=== PATIENT | male | born 1975 | race Caucasian/White ===

== ENCOUNTER 2023-05-04 11:08 | Inpatient (IN) | payer MEDICARE, MEDICAID ==
[~2023-05-04] VITALS: Ht 190.5 cm; Wt 74.6 kg
[2023-05-04 11:44] LABS: BASOPHILS % (AUTO) 0.5 % (0-1); EOSINOPHILS # (AUTO) 0.1 X10'3 (0-0.9); EOSINOPHILS % (AUTO) 1.5 % (0-6); HEMATOCRIT 43.2 % (42.0-52.0); HEMOGLOBIN 14.6 g/dl (14.0-17.9); LYMPHOCYTES # (AUTO) 1.3 X10'3 (1.1-4.8); LYMPHOCYTES % (AUTO) 18.8 % (21-51); MEAN CORPUSCULAR HEMOGLOBIN 30.7 PG (27.0-31.0); MEAN CORPUSCULAR HGB CONC 33.7 g/dL (33.0-36.5); MEAN CORPUSCULAR VOLUME 90.9 FL (78-98); MONOCYTES # (AUTO) 0.4 X10'3 (0-0.9); NEUTROPHILS % (AUTO) 73.2 % (42-75); PLATELET COUNT 341 X10'3 (140-440); RED BLOOD COUNT 4.75 X10'6 (4.70-6.10); RED CELL DISTRIBUTION WIDTH 13.4 % (11.5-14.5); WHITE BLOOD COUNT 6.9 X10'3 (4.5-11.0)
[2023-05-04 11:51] LABS: ALANINE AMINOTRANSFERASE 39 U/L (12-78); ALBUMIN/GLOBULIN RATIO 1.2 (1.1-1.5); ALKALINE PHOSPHATASE 116 IU/L (46-116); ANION GAP 5 (8-16); ASPARTATE AMINO TRANSFERASE 29 U/L (10-37); BILIRUBIN,TOTAL 0.4 MG/DL (0.1-1.0); BLOOD UREA NITROGEN 24 MG/DL (7-18); CALCIUM 8.6 MG/DL (8.5-10.1); CHLORIDE 106 MMOL/L (99-107); CREATININE 1.41 MG/DL (0.60-1.10); GLUCOSE 119 MG/DL (70-104); POTASSIUM 3.8 MMOL/L (3.5-5.1); SODIUM 139 MMOL/L (135-145); TOTAL CARBON DIOXIDE 27.9 MMOL/L (24-32); TOTAL PROTEIN 7.3 G/DL (6.4-8.2); eCRCL 70 ML/MIN; eGFR 54 ML/MIN
[2023-05-04 11:58] LABS: PRO BRAIN NATRIURETIC PEPTIDE 43 PG/ML (0-125)
--- NOTE | 2023-05-04 12:52 | NUR ---
FAMILY AT BEDSIDE. PT HAS NO COMPLAINTS. ON BEDSIDE MONITORING EQUIPMENT.
[2023-05-04] MEDS ORDERED: magnesium Cl slow-release 64mg tablet PO PRN (15:15)
[2023-05-04] MEDS ORDERED: magnesium 4gm in 100ml NS 100 ML IV PRN (15:15)
[2023-05-04] MEDS ORDERED: morphine 2 MG/ML inj. syringe IV PRN (15:15)
[2023-05-04] MEDS ORDERED: acetaminophen 325mg tablet PO PRN (15:15)
[2023-05-04] MEDS ORDERED: ondansetron/PF 4mg/2ml inj IV PRN (15:15)
[2023-05-04] MEDS ORDERED: mag hydrox/Alum hydrox/simeth 30ml oral suspension PO PRN (15:15)
[2023-05-04] MEDS ORDERED: potassium Cl 20 mEq SR tablet PO PRN (15:15)
[2023-05-04] MEDS ORDERED: potassium Cl 40MEQ/1/2NS 520ml 520 ML IV PRN (15:15)
[2023-05-04] MEDS ORDERED: magnesium hydroxide 30ml (MOM) UD suspension PO PRN (15:15)
[2023-05-04] MEDS ORDERED: magnesium 2GM in 50ml NS 50 ML IV PRN (15:15)
[2023-05-04] MEDS: normal saline 1000ml 1,000 ML IV SCH (16:45)
--- NOTE | 2023-05-04 17:21 | NUR ---
PARENTS HAVE LEFT FOR THE EVENING. PT HAS TV AT BEDSIDE. PT HAS MILD COGNITIVE DELAY THAT PARENTS STATE IS THE RESULT OF HIM BEING IN A COMA FOR 13 WEEKS FOLLOWING AN ABLATION FOR HIS FOFANA P[place] WHITE SYNDROME. THE ABLATION WAS DONE AT AGE 19. PT DENIES NEEDS AT THIS TIME.
[2023-05-04 17:22] LABS: URINE AMPHETAMINE SCREEN NEGATIVE (Neg); URINE BARBITUATE SCREEN NEGATIVE (Neg); URINE BENZODIAZEPINES SCREEN NEGATIVE (Neg); URINE CANNABINOID SCREEN NEGATIVE (Neg); URINE COCAINE SCREEN NEGATIVE (Neg); URINE METHADONE SCREEN NEGATIVE (Neg); URINE OPIATE SCREEN NEGATIVE (Neg); URINE PHENCYCLIDINE SCREEN NEGATIVE (Neg)
--- NOTE | 2023-05-04 17:43 | NUR ---
PATIENT RESTING QUIETLY WATCHING TV.
[2023-05-04] MEDS ORDERED: NO HOME MEDS (17:45)
--- NOTE | 2023-05-04 18:46 | NUR ---
Patient resting in bed, denies needs at this time. Call light within reach.
[2023-05-04] MEDS: K and/or MAG REPLACEMENT MC SCH (19:25)
[2023-05-04] MEDS: heparin, porcine 5000 units/ml vial SQ SCH (19:27)
[2023-05-04] MEDS: docusate sod 100mg capsule PO SCH (19:27)
--- NOTE | 2023-05-04 21:24 | NUR ---
Patient resting in bed watching TV. Respirations even and unlabored, no acute distress noted at this time, call light within reach.
--- NOTE | 2023-05-04 23:17 | NUR ---
Patient resting in bed, denies needs. Patient updated on status, verbalized understanding. Call light within reach.
[2023-05-05 02:59] LABS: BASOPHILS % (AUTO) 0.3 % (0-1); EOSINOPHILS # (AUTO) 0.1 X10'3 (0-0.9); EOSINOPHILS % (AUTO) 0.7 % (0-6); HEMATOCRIT 41.8 % (42.0-52.0); HEMOGLOBIN 14.4 g/dl (14.0-17.9); LYMPHOCYTES # (AUTO) 1.7 X10'3 (1.1-4.8); LYMPHOCYTES % (AUTO) 20.9 % (21-51); MEAN CORPUSCULAR HEMOGLOBIN 31.2 PG (27.0-31.0); MEAN CORPUSCULAR HGB CONC 34.3 g/dL (33.0-36.5); MEAN CORPUSCULAR VOLUME 90.9 FL (78-98); MEAN PLATELET VOLUME 7.7 FL (7.4-10.4); MONOCYTES # (AUTO) 0.4 X10'3 (0-0.9); MONOCYTES % (AUTO) 5.4 % (2-12); NEUTROPHILS # (AUTO) 5.9 X10'3 (1.8-7.7); NEUTROPHILS % (AUTO) 72.7 % (42-75); PLATELET COUNT 319 X10'3 (140-440); RED CELL DISTRIBUTION WIDTH 13.6 % (11.5-14.5); WHITE BLOOD COUNT 8.1 X10'3 (4.5-11.0)
[2023-05-05 03:09] LABS: ALANINE AMINOTRANSFERASE 29 U/L (12-78); ALBUMIN 3.7 G/DL (3.4-5.0); ALBUMIN/GLOBULIN RATIO 1.3 (1.1-1.5); ALKALINE PHOSPHATASE 104 IU/L (46-116); ANION GAP 9 (8-16); ASPARTATE AMINO TRANSFERASE 19 U/L (10-37); BILIRUBIN,TOTAL 0.5 MG/DL (0.1-1.0); BLOOD UREA NITROGEN 18 MG/DL (7-18); BUN/CREATININE RATIO 15.4 (10.0-20.0); CALCIUM 8.4 MG/DL (8.5-10.1); CHLORIDE 106 MMOL/L (99-107); CREATININE 1.17 MG/DL (0.60-1.10); GLUCOSE 104 MG/DL (70-104); MAGNESIUM 2.2 MG/DL (1.5-2.4); PHOSPHORUS 3.7 MG/DL (2.3-4.5); POTASSIUM 3.2 MMOL/L (3.5-5.1); SODIUM 141 MMOL/L (135-145); TOTAL PROTEIN 6.6 G/DL (6.4-8.2); eCRCL 84 ML/MIN; eGFR 67 ML/MIN
--- NOTE | 2023-05-05 05:09 | NUR ---
Patient resting in bed, watching TV. Respirations even and unlabored, no acute distress noted at this time, call light within reach.
[2023-05-05] MEDS: potassium Cl 20 mEq SR tablet PO PRN ×2 (05:17→11:10)
--- NOTE | 2023-05-05 05:17 | NUR ---
Patient ambulatory independently to and from restroom.
--- NOTE | 2023-05-05 06:47 | NUR ---
received report from ED
[2023-05-05] MEDS: docusate sod 100mg capsule PO SCH (07:16)
[2023-05-05] MEDS: heparin, porcine 5000 units/ml vial SQ SCH (07:19)
[2023-05-05] MEDS: normal saline 1000ml 1,000 ML IV SCH (07:21)
[2023-05-05 07:50] VITALS: BP 142/88; PULSE 82; RESP 17; TEMP 97.6; O2SAT 99
[2023-05-05] MEDS: K and/or MAG REPLACEMENT MC SCH (08:00)
[2023-05-05 10:31] VITALS: BP 155/91; PULSE 74; RESP 16; TEMP 98.6; O2SAT 97
--- NOTE | 2023-05-05 10:51 | NUR ---
sent page to echo notifying that an echo has been ordered for today, no call back
--- NOTE | 2023-05-05 14:14 | NUR ---
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
== END 2023-05-05 14:13 | disposition home or self-care (01) | DRG 312 ==
LOC: ER 11:09 → ED HOLD 15:20 → EDBEDREQ 05-05 02:04 → ORTHO 4S 05-05 07:00
PROVIDERS: ADMIT Internal Medicine; ATTEND Internal Medicine
DX: R55 Syncope and collapse (principal); N17.0 Acute kidney failure with tubular necrosis; E87.6 Hypokalemia; R00.1 Bradycardia, unspecified; I45.6 Pre-excitation syndrome; Z86.74 Personal history of sudden cardiac arrest
CPT/HCPCS: 36415; 70450; 71045; 80053; 80305; 83735; 83880; 84100; 84484; 85025; 87081; 93306; 99285; G0378; J1644; J7030